=== PATIENT | male | born 1995 | race Caucasian/White ===

== ENCOUNTER 2018-03-27 18:18 | Emergency (ER) | payer OTHER, SELFPAY ==
[2018-03-27 18:19] VITALS: BP 167/79; PULSE 71; RESP 16; TEMP 36.7; O2SAT 100; BMI 33.9
--- NOTE | 2018-03-27 19:23 | CT_ITS ---
STUDY: CT BRAIN WITHOUT CONTRAST REASON FOR EXAM: Male, 22 years old. Trauma RADIATION DOSAGE (If Supplied By Facility): CTDIvol = ( 44.99 ) mGy, DLP = ( 846.73 ) mGycm TECHNIQUE: Transaxial CT imaging of the brain was performed without administration of intravenous contrast material. Individualized dose optimization techniques were used for this CT. COMPARISON: None. FINDINGS: Normal soft tissue structures. Normal calvarium. Normal size ventricles and extra-axial spaces for the patient's age. Normal white matter tracts of the cerebral hemispheres. Normal basal ganglia and thalami. Normal brainstem. Normal cerebellum. There is no intracranial hemorrhage. There are no findings of an acute ischemic infarction. Normal visualized paranasal sinuses. CT/Brain/Head without Contrast IMPRESSION: Normal unenhanced CT scan of the brain. Electronically Signed: Chaz García MD at 20:05 EST , Service support ,
--- NOTE | 2018-03-27 20:53 | ED.DCSUM_ITS ---
- ER Visit Summary Date of Service: 03/27/18 Chief Complaint: Laceration History of Present Illness: The patient is a 22 M who was hit in the right eyebrow with a pipe at work on accident. No loss of consciousness. No other injuries or complaints. No blood thinner use. Tetanus up-to-date. Physical Examination: Vitals unremarkable. Patient has a 3 cm linear laceration to his right eyebrow. Eyes are unremarkable. Normal exam. There is a contusion near the laceration and his right forehead is tender to palpation. The remainder of his HEENT exam unremarkable. Neck is nontender. Normal neurologic testing grossly Test Results: CT unremarkable Emergency Department Course and Treatment: Area was anesthetized, cleaned, explored, sutured with 4 simple interrupted sutures. Patient tolerated this well. He was given wound care instructions and will follow-up with corporate care. Treatment Plan: As above Disposition: Discharge Impression: 1. Forehead laceration 3 cm 2. Forehead contusion This note was generated with [employer] dictation software. It may contain incorrect words, spelling, and punctuation that were not noted in review of the chart prior to signing ED Disposition - Plan for ED Patient: Chief Complaint: Head Injury Referrals: Lew Lindo, CRISTIANO-C [Primary Care Provider] -
--- NOTE | 2018-03-27 20:53 | ED.DEP ---
ED Disposition - Plan for ED Patient: Chief Complaint: Head Injury Instructions: ED Laceration Facial Sutr Tape Referrals: Corporate,Care [GROUP OF PHYSICIANS] - 7 Days for suture removal
[2018-03-27 21:02] VITALS: BP 126/56; PULSE 66; RESP 15; O2SAT 97
--- OUTSIDE RECORDS SUMMARY | 2018-06-01 17:07 | XMS RPT_ITS ---
:1995 Author Organization [facility] Care Team Providers Name Role Phone Manish Francis Unavailable Lwe Lindo SLP TEACHER-Lucia Primary Care Unavailable PROBLEMS PROBLEMS No Problem Records FoundPROCEDURES PROCEDURES No Procedure Records FoundRESULTS RESULTS EMERGENCY DEPARTMENT Observed: 03/27/2018 Status: F Source: [facility] SUMMARY 11:49 PM [facility] REPOSITORY [facility] Medical Records Department [address] [address] Emergency Department Summary 03/27/182051 MR#: [id number] Acct: [id number] Name: AMERICO GRANDE Rep #: [id number] : 1995 22 From: Manish Francis MD PCP: RAYRAY Mahoney Status: DEP ER - ER Visit Summary Date of Service: 03/27/18 Chief Complaint: Laceration History of Present Illness: The patient is a 22 M who was hit in the right eyebrow with a pipe at work on accident. No loss of consciousness. No other injuries or complaints. No blood thinner use. Tetanus up-to-date. Physical Examination: Vitals unremarkable. Patient has a 3 cm linear laceration to his right eyebrow. Eyes are unremarkable. Normal exam. There is a contusion near the laceration and his right forehead is tender to palpation. The remainder of his HEENT exam unremarkable. Neck is nontender. Normal neurologic testing grossly Test Results: CT unremarkable Emergency Department Course and Treatment: Area was anesthetized, cleaned, explored, sutured with 4 simple interrupted sutures. Patient tolerated this well. He was given wound care instructions and will follow-up with corporate care. Treatment Plan: As above Disposition: Discharge Impression: 1. Forehead laceration 3 cm 2. Forehead contusion This note was generated with [employer] dictation software. It may contain incorrect words, spelling, and punctuation that were not noted in review of the chart prior to signing ED Disposition - Plan for ED Patient: Chief Complaint: Head Injury Referrals: Lew Lindo NP-C [Primary Care Provider] - What to do if you have Problems For any increased pain, shortness of breath, bleeding, nausea or vomiting, chest pain, or any unexpected problems, contact your Primary Care Provider. Call [facility] ([phone]) or report to the closest Emergency Room. Call 911 if necessary. 03/27/18 2349 <Electronically signed by Manish Francis MD> Date Manish Francis MD Cosigner Signature (If Indicated): Date CC: RAYRAY Lindo DISCHARGE INSTRUCTION Observed: 03/27/2018 Status: F Source: [facility] 11:49 PM [facility] REPOSITORY [facility] Medical Records Department [address] [place] [address] Discharge Instruction 03/27/182052 MR#: [id number] Acct: [id number] Name: AMERICO GRANDE Rep #: [id number] : 1995 22 From: Manish Francis MD PCP: RAYRAY Mahoney Status: [facility] ER ED Disposition - Plan for ED Patient: Chief Complaint: Head Injury Instructions: ED Laceration Facial Sutr Tape Referrals: [facility] [GROUP OF PHYSICIANS] - 7 Days for suture removal What to do if you have Problems For any increased pain, shortness of breath, bleeding, nausea or vomiting, chest pain, or any unexpected problems, contact your Primary Care Provider. Call [facility] ([phone]) or report to the closest Emergency Room. Call 911 if necessary. 03/27/18 2270 <Electronically signed by Manish Francis MD> Date Manish Francis MD Cosigner Signature (If Indicated): Date CC: RAYRAY Lindo BRAIN/HEAD WITHOUT Observed: 03/27/2018 Status: F Source: [facility] CONTRAST 7:24 PM [facility] REPOSITORY [facility] Imaging Services [address] [place] [address] Brain/Head without Contrast MR#: [id number] Acct: [id number] Name: AMERICO GRANDE Rep #: [id number] : 1995 M 22 From: Chaz García MD PCP: RAYRAY Mahoney Status: REG ER Study: Brain/Head without Contrast Date of Exam: 03/27/18 Exam# [id number] Ordering Dr: Manish Francis MD STUDY: CT BRAIN WITHOUT CONTRAST REASON FOR EXAM: Male, 22 years old. Trauma RADIATION DOSAGE (If Supplied By Facility): CTDIvol = ( 44.99 ) mGy, DLP = ( 846.73 ) mGycm TECHNIQUE: Transaxial CT imaging of the brain was performed without administration of intravenous contrast material. Individualized dose optimization techniques were used for this CT. COMPARISON: None. FINDINGS: Normal soft tissue structures. Normal calvarium. Normal size ventricles and extra-axial spaces for the patient's age. Normal white matter tracts of the cerebral hemispheres. Normal basal ganglia and thalami. Normal brainstem. Normal cerebellum. There is no intracranial hemorrhage. There are no findings of an acute ischemic infarction. Normal visualized paranasal sinuses. CT/Brain/Head without Contrast IMPRESSION: Normal unenhanced CT scan of the brain. Electronically Signed: Chaz García MD at 20:05 EST , Service support , CC: RAYRAY Lindo; Manish Francis MD Marketing Regional Consultant: Signed ALLERGIES ALLERGIES DATE TYPE / CODE NAME / CODE REACTION SEVERITY SOURCE 03/27/2018 Drug No Known Unknown [facility] Allergy/4160 Allergies/F00 [facility] 99931(SNOMED [id number](RXNOR Repository CT) M) ENCOUNTERS ENCOUNTERS ADMIT/DISCHARGE ACCOUNT ADMITTING ENCOUNTER LOCATION SOURCE NUMBER CLASS 03/27/2018/ [id number] Emergency Ronald Ronald [address] [place] [address] ing:ED Repository PAYERS PAYERS ENCOUNTER GUARANTOR PAYER SUBSCRIBER SOURCE 03/27/2018 AMERICO CASTRO Primary AMERICO Cardenas [id number] S Insurance:OBWC FETZERDOB: [facility] [id number]: Repository [address]Tvg: [phone] [phone] () Date:[id number] [address], [place] [address]PH: 03/27/2018 Secondary AMERICO Cardenas Insurance:MEDI FETZERDOB[facility] Number: [id number] [facility] [id number] Repository Date:[id number] [address] [address]DH: 03/27/2018 Tertiary NOT GIVENCASTILLO Ronald Insurance:SELF PAY [facility] Number: Effective Repository Date:2018-03-27
== END 2018-03-27 21:16 | disposition home or self-care (01) ==
LOC: ED 19:43
PROVIDERS: Emergency Provider Emergency Medicine; Family Provider Nurse Practitioner Family; PCP Nurse Practitioner Family
DX: S01.111A Laceration without foreign body of right eyelid and periocular area, initial encounter (principal); W22.8XXA Striking against or struck by other objects, initial encounter; Y93.89 Activity, other specified; Y92.89 Other specified places as the place of occurrence of the external cause; Y99.0 Civilian activity done for income or pay
CPT/HCPCS: 12013; 70450; 99283

== ENCOUNTER 2021-06-29 10:19 | Day surgery (SDC) | payer OTHER, SELFPAY ==
[2021-06-29] VITALS (9 sets, daily range): BP systolic 150–184; BP diastolic 70–118; PULSE 72–103; RESP 16; TEMP 36.2–37.1; O2SAT 96–100; BMI 34.7
[2021-06-29] MEDS: Lactated Ringers 1,000 ML 30 ML IV ×2 (11:09→14:30)
[2021-06-29] MEDS: Cefazolin 2 GM in 0.9% Normal Saline 100 ML IV (12:38)
--- NOTE | 2021-06-29 14:35 | PCM.DC ---
Discharge Instructions Follow Up Care Test Results: Test results from this visit will be discussed in further detail at your follow-up appointment, if applicable. Discharge Plan Admission Attending Provider: Rolan Galaviz Primary Care Provider: Care Physician,No Primary Instructions Additional Instructions / Restrictions: Follow preprinted instructions from your surgeons office. Discharge Orders/Prescriptions Prescriptions: No Action NK RF: 0 Referrals / Follow Up: Rolan Galaviz DO [STAFF PHYSICIAN] - Within 2 Weeks Care Physician,No Primary [Primary Care Provider] - Disposition Disposition (needs filled in before D/C Order can be placed): Home, Self Care
--- NOTE | 2021-06-29 14:58 | PCM.OPRPT ---
Report of Operation Description of Surgical Findings:: Preoperative diagnosis: 1. Left knee anterior cruciate ligament rupture 2. Left knee medial meniscus tear 3. Questionable left lateral meniscus tear Postoperative diagnosis: 1. Left knee anterior cruciate ligament rupture 2. Left knee Posterior medial meniscus RAMP lesion - healed Procedure: Diagnostic and operative left knee arthroscopy with quadriceps autograft anterior cruciate ligament reconstruction Primary Surgeon: Rolan Galaviz DO Senior Nurse Manager: Ashley Griffin PA-C Anesthesia: General LMA with postoperative femoral nerve block Anesthesiologist: Dr. Salazar Complications: None apparent Estimated blood loss: 25 cc IV fluids: Per anesthesia record Implants: Arthrex tight rope femoral fixation with ABS button tibial sided fixation Intraoperative findings: Healed ramp lesion left knee Complete ACL rupture Preoperative indications: This is an otherwise healthy 25-year-old male seen in the outpatient setting diagnosed with a left knee anterior cruciate ligament rupture. Injury occurred approximately 6 weeks ago. MRI confirmed the diagnosis. He rehabbed her knee and regain full motion and excellent strength. He did experience considerable instability and avoidance of specific activities after rehab. Operative intervention in the form of left knee anterior cruciate ligament reconstruction was recommended. We discussed graft options. We settled on a quadriceps autograft. The risk, benefits, alternatives to the procedure was reviewed with the patient at length. Risks included but were not limited to bleeding, wound complications, infection, loss of life or limb, need for additional surgery, continued instability, persistent pain, posttraumatic arthritis, stiffness, difficulty returning to sport, risk of anesthesia, DVT or PE, neurovascular injury. Patient expressed understanding his risks and wished to proceed with surgery. Informed consent obtained in the office. Description of procedure: Patient was identified in preoperative holding area by name, medical record number, and date of . The operative extremity was marked. Informed consent confirmed with the patient. All questions were answered to patient satisfaction. At time of his procedure, patient was brought to the operative suite and positioned supine on a standard operating table. All bony prominences were well-padded. General anesthesia was induced and laryngeal mask airway placed. After securing the tube, I placed a well-padded pneumatic tourniquet on the upper thigh of the operative extremity. I first examined the leg under anesthesia. There was a positive pivot shift and Marlena. We then positioned the operative extremity in a circumferential arthroscopic leg blanco. A well-leg blanco was placed on the patient's nonoperative thigh. We then dropped the foot of the bed 90 degrees. We then prepped and draped the operative lower extremity in a normal, sterile orthopedic fashion. We performed a timeout with all parties in attendance in agreement with the side, site, operation to be performed. No concerns were voiced and we elected to proceed with surgery. 2 g Ancef was administered for antibiotic prophylaxis prior to the incision by the anesthesia staff. Given the positive provocative findings and positive MRI findings consistent with ACL rupture, I elected to harvest the graft first. I planned a midline incision overlying the quadriceps tendon approximately 4 cm in length. Operative extremity was exsanguinated with an Esmarch bandage and tourniquet was inflated to 250 mmHg remained up throughout the case. Skin was sharply incised with a 15 blade scalpel through skin and subcutaneous tissue. Subcutaneous fat was cleared exposing the peritenon of the quadriceps. The quadriceps peritenon was carefully elevated and dissected free from the underlying tendon, in line with the skin incision. I then identified the insertion of the tendon on the superior pole of the patella. I utilized the parallel cutting guide 9 mm in diameter to establish the width of our tendon harvest. I sharply dissected the insertion off of the patella. I elevated a partial thickness graft. After gaining approximately 4 cm in length, I performed a whipstitch for fixation into the tendon with a FiberWire suture. I then utilized a torres elevator and scalpel to continue to elevate the graft. I was able to elevate the tendon graft free to a length of 65 millimeters. This was cut sharply with the cigar cutting instrument from [employer]. The void in the quadriceps was then closed with 0 Vicryl suture. Peritenon was closed with 2-0 Vicryl suture in watertight fashion. The graft was moved to the back table where my assistant shift supervisor, Mrs. Griffin, began to prepare the graft. She prepared a standard all inside fixation with a tight rope attachment on the femoral side. The graft was pretensioned. After the graft was prepared, it was left under tension and kept fresh with a moist sponge. 9.5 mm femoral side and 9 mm tibial side were the final graft diameters. During time of graft preparation, I commenced diagnostic and operative arthroscopy. Establish a standard anterolateral portal with an 11 blade scalpel. Blunt tipped trocar and cannula was inserted through this portal as the knee was brought into full extension into the patellofemoral joint. Trocar was removed and arthroscope introduced. Examination of the knee revealed pristine cartilage in the patellofemoral, medial and lateral compartments. There is a previously inlet ramp lesion noted on MRI which appeared to be healed after passing the scope through the notch. Medial and lateral meniscus were identified and probed, and appeared stable. The remnants of the ACL was then encountered. ACL rupture was confirmed. I resected the remaining portion of the ACL with a radial resector, marking the footprints with the radiofrequency ablator. I then performed a notchplasty in standard fashion with a 5.5 mm bur. I then introduced the flip cutter drill guide through the anterior lateral portal and the camera was moved to the anterior medial portal. I positioned the drill guide to allow for 2 mm of back wall at approximately the 3:00 position on the lateral wall of the notch. I made a stab incision along the lateral thigh in line with the planned trajectory of the flip cutter. Skin, subcutaneous tissue, and IT band were sharply incised and dilated. Drill guide and drill were then passed down to the level of the lateral femoral cortex. We drilled through the lateral cortex into the intercondylar notch at the planned trajectory location. The flip cutter was then deployed to a diameter of 9.5 mm. The flip cutter was then used to retrograde drill the femoral socket to a depth of 20 mm. Flip cutter was then retracted and pulled from the wound. A fiber stick was then introduced through the femoral socket. The fiber wire was then retrieved out the anterior lateral portal and luggage tagged. Loose pieces of bone was debrided with a radial resector from the knee. I then switched the camera to the lateral portal. I placed the tibial drill guide through the anterior medial portal planning be tunnel placement at the [place] footprint of the ACL. I sharply incised the skin with an 11 blade scalpel through skin and subcutaneous tissues over the anterior medial tibia with planned trajectory of the drill course. I then drilled through the anterior medial tibia into the joint at the planned trajectory. I deployed the flip cutter to a diameter of 9 mm and drilled retrograde fashion for the tibial socket, approximately 35 mm in length. I then reversed the flip cutter to 3.5 mm and removed from the joint. I placed a tiger stick through the tibial tunnel and retrieved out the anterior medial portal. I then brought the graft to the surgical field. I retrieved the loop end of the femoral side shuttling suture through the anterior medial portal and attached to the suture ends of the femoral side button of the graft. We then passed the sutures and button through the femoral tunnel. The tight rope button was then deployed and engaged the lateral femoral cortex. We then sequentially tightened the graft to docket into the femoral tunnel. I then retrieve the passing suture for the tibial tunnel at the anteromedial portal and utilized it to pass the tibial side of the graft/sutures. Sutures were then retrieved out the tibial tunnel. I placed an ABS button through the tight rope mechanism is sequentially tightened to appropriate, maximum tension. The knee was then cycled 25 times to prevent creep. Final tightening was performed in full extension. I tied 3 half hitch knots over the tibial button. Sutures were then cut. The knee was thoroughly debrided lavage of any loose pieces of bone. Final images were obtained. Tourniquet was deflated and hemostasis was excellent. Portal sites were closed in standard fashion with coxdrr-ag-coeab 4-0 nylon suture. Subcuticular 4-0 Monocryl and Dermabond were used to reapproximate the skin of the harvest site. Sterile compression dressing was then applied. Need for skilled assistant shift supervisor: Ashley Griffin PA-C was critical to the outcome of the case. During the course of the procedure the physician assistant shift supervisor played a vital role. Her intimate knowledge of my steps in the procedure aided in safe and expedient completion of the procedure. The PA played a vital role in positioning particularly in obtaining the appropriate positioning. The PA was also vital in the retraction of soft tissues during the exposure and projecting vital structures. The PA was also vital and protecting soft tissues during graft harvest. She prepared the autograft under my direct supervision.. She also played a vital role in closure with my direct supervision. Postoperative plan: Weightbearing and range of motion as tolerated left lower extremity Ice and elevation Follow-up 2 weeks in my office Prescription of oxycodone provided as an outpatient 81 mg aspirin twice daily to start for DVT prophylaxis tomorrow morning PT scheduled to start in 2 days Written instructions provided
--- NOTE | 2021-06-29 16:05 | SUR.PHASEI ---
family updated via clerk secretary
== END 2021-06-29 23:59 | disposition home or self-care (01) ==
LOC: SDC 10:21 → AC 10:23
PROVIDERS: Referring Provider Student in an Organized Health Care Education/Training Program; Visit Provider Student in an Organized Health Care Education/Training Program
PROC: (CPT 29888; principal; 2021-06-29 12:10)
DX: S83.512D Sprain of anterior cruciate ligament of left knee, subsequent encounter (principal); S83.242A Other tear of medial meniscus, current injury, left knee, initial encounter; E66.8 Other obesity; Z68.34 Body mass index [BMI] 34.0-34.9, adult; F84.0 Autistic disorder; Z79.899 Other long term (current) drug therapy
CPT/HCPCS: 29888; 01400; C1713; J7120; J2405

== ENCOUNTER 2023-03-08 05:57 | Day surgery (SDC) | payer OTHER, SELFPAY ==
[2023-03-08] VITALS (10 sets, daily range): BP systolic 119–138; BP diastolic 50–82; PULSE 57–98; RESP 16–18; TEMP 36.2–36.8; O2SAT 95–100; BMI 34.9
--- OUTSIDE RECORDS SUMMARY | 2023-03-08 06:00 | XMS RPT_ITS | CCD ---
Author Name Unknown Address [facility] [address] [place] [address] Organization [facility] Care Team Providers Care Stock Lifter Name Role Phone DANIELLE WASSERMAN DO Attending Unavailable Results Test Name Value Interpretation Reference Range Facil ity Encounters Encounter Date Encounter Type Care Provider Facility Start: 02-15-2023 End: 02-16-2023 ambulatory DANIELLE WASSERMAN DO Facility:B Start: 02-15-2023 End: 02-15-2023 Patient encounter procedure DANIELLE WASSERMAN DO [facility] Payers Date Payer Category Payer Unknown [id number] 1995 Unknown [id number] Clinical Note 02-15-2023 Note Date & Type Note Facility 02-15-2023 Note ORIGINAL EXAMINATION: TWO XRAY VIEWS OF THE CHEST02/15/2023 4:05 pm XR Chest two views COMPARISON: None HISTORY: ORDERING SYSTEM PROVIDED HISTORY: Reason for Exam: Encounter for preprocedural respiratory exam, FINDINGS: No suspicious nodule, acute infiltrate, consolidation,mass, pneumothorax, pleural fluid, or vascular congestion is seen. Heart size and mediastinal contours are within normal limits for age and projection. No acute skeletal abnormality. IMPRESSION: No acute cardiopulmonary process. Interpreted by: Vinay Arroyo MD Preliminary Report By: Vinay Arroyo MD Electronically signed By Vinay Arroyo MD Dictated Date: 02/16/2023 12:24:19 AM Prelim Date: 02/16/2023 12:24:41 AM Sign Date: 02/16/2023 12:24:41 AM Ordering Provider: DANIELLE WASSERMAN [facility] Evaluation + Plan note 02-15-2023 Note Date & Type Note Facility 02-15-2023 Evaluation + Plan note Diagnostic Tests PendingMRSA (PCR) 02/15/23 [facility] Hospital course Narrative Note Date & Type Note Facility Hospital course Narrative No data available for this section [facility] Hospital Discharge instructions Note Date & Type Note [facility] Hospital Discharge instructions No data available for this section [facility] Progress note Note Date & Type Note Facility Progress note No data available for this section [facility] Summary Purpose Family History No Family History Records Found Advance Directives No Advanced Directives Records Found Additional Source Comments (unrecognized sect ion and content) No Status Records Found INFORMATION SOURCE (unrecogn ized section and content) FOR RECORDS PERTAINING TO PATIENTS WHO ARE OR HAVE BEEN ENROLLED IN A CHEMICAL DEPENDENCY/SUBSTANCEABUSE PROGRAM, SOME INFORMATION MAY BE OMITTED. This clinical summary was aggregated from multiple sources. Caution should be exercised in using it in the provision of clinical care. This summary normalizes information from multiple sources, and as a consequence, information in this document may materially change the coding, format and clinical context of patient data. In addition, data may be omitted in some cases. CLINICAL DECISIONS SHOULD BE BASED ON THE PRIMARY CLINICAL RECORDS. [employer] provides no warranty or guarantee of the accuracy or completeness of information in this document.
[2023-03-08] MEDS: Lactated Ringers 1,000 ML 15 ML IV (06:26)
--- NOTE | 2023-03-08 07:02 | OP.PCM_ITS ---
Problems Associated Problem List Diagnoses (1) Lumbar disc herniation: Report of Operation Description of Surgical Findings:: REPORT OF OPERATION PREOPERATIVE DIAGNOSES: 1. Lumbar stenosis, L4-5 with spondylosis. 2. Lumbar disc herniation L4-5, left. POSTOPERATIVE DIAGNOSES: 1. Lumbar stenosis, L4-5 with spondylosis. 2. Lumbar disc herniation L4-5, left. PROCEDURE PERFORMED: 1. Left L4-5 laminotomy, discectomy. SURGEON: Seun Degroot DO ANESTHESIA: General endotracheal anesthesia. IV FLUIDS: 1000 cc ESTIMATED BLOOD LOSS: 20 cc STATEMENT OF MEDICAL NECESSITY: The patient is a 27-year-old male with intractable back and leg pain. Image studies confirm above diagnosis. He has failed conservative treatment and has opted for operative intervention, understanding the risks to include, but not limited to infection, bleeding, damage to nerves, arteries, and veins, possibility of spinal fluid leak, nonunion, hardware failure, continued pain, need for further surgery, deep vein thrombosis, pulmonary embolism, heart attack, risk of stroke, or . DESCRIPTION OF PROCEDURE: The patient was identified in the preoperative holding area. There, he received the preoperative IV antibotics and was then transferred to the operating suite. Once in the operating suite, after general endotracheal anesthesia was established, the patient was transferred to the [place] operating table in the prone position. All bony prominences were padded accordingly. The lumbar spine was prepped and draped in standard surgical fashion. Midline incision was made and taken down to the lumbodorsal fascia. This was divided and subperiosteal dissection taken down to the level of the left L4-5 facet joint. Deep retractors were placed. A bur was used to thin the lamina and then a series of Kerrisons and Edward was used to perform a left L4-5 laminotomy. The nerve root and dura were identified and retracted medially. A large subligamentous disc herniation was identified. A 15 blade scalpel was used to perform an annulotomy. Pituitaries were used to remove subligamentous disc herniation. Any loose fragments were identified and removed. At this point a curette was utilized in the left L4-5 foramen and a foraminotomy was performed using a kerrison. The wound was thoroughly irrigated. Tissel was placed over the dura as a hemostatic agent. The fascia was closed with #1 Vicryl, subcutaneous with 2-0 Vicryl, skin was closed with 2-0 nylon. Sterile dressing was applied with 4 x 4, ABD, and tape. Sponge, instrument, and needle counts were correct at the end of the case. The patient was extubated, taken to PACU without incident. Surgeon: Marcus Degroot Type of Anesthesia: General Estimated Blood Loss (mL): 20 cc Fluids Replaced: 1000 cc Complications None Admit VTE Documentation VTE Present on Admission: No
--- NOTE | 2023-03-08 07:03 | PN.ORTHO_ITS ---
Subjective Subjective Seen and examined postop. Resting comfortably. Pain controlled. No complaints Objective Data Objective Data Vital Signs: Vital Signs Temp Pulse Resp BP Pulse Ox O2 Del Method 98 F 98 16 129/82 H 98 Room Air 03/08/23 06:23 03/08/23 06:23 03/08/23 06:23 03/08/23 06:23 03/08/23 06:23 03/08/23 06:23 Oxygen Delivery Method Room Air Weight: 257 lb 15.053 oz Body Mass Index (BMI) 34.9 Physical Exam Const alert, oriented x3 and no apparent distress General Appearance: cooperative, comfortable and well kempt HEENT normocephalic and head/scalp atraumatic Eyes EOMs intact bilaterally and conjunctivae normal Neck full ROM General: normal visual inspection Chest inspection of chest normal and palpation of chest normal Resp normal respiratory effort and normal air movement Cardio regular rate, regular rhythm and peripheral pulses 2+ throughout GI soft to palpation, non-tender and non-distended Back/Spine Back/Spine Narrative: Dressing clean dry and intact Cervical Spine: cervical ROM normal Thoracic Spine / Upper Back: normal to inspection Lumbar Spine / Lower Back: normal to inspection Extremity normal to inspection, full ROM, normal capillary refill, no clubbing, cyanosis or edema and no calf tenderness Skin no rashes or lesions noted General Skin Exam: no breakdown Neuro oriented x3, CN's II-XII intact bilaterally, moves all extremities, no focal motor deficits, no sensory deficits noted and deep tendon reflexes 2+ bilatera lly Motor Exam: strength 5/5 throughout and muscle tone normal throughout Assessment & Plan Assessment/Plan (1) Lumbar disc herniation: PLAN: Okay to discharge See discharge instructions Follow-up with Dr. Degroot in 3 weeks
[2023-03-08] MEDS: Cefazolin 2 GM in 0.9% Normal Saline (100mL Bag) 100 ML IV (07:19)
--- NOTE | 2023-03-08 07:30 | RAD_ITS ---
INDICATION: L4-5 LAMINOTOMY, DISCECTOMY -- 9.8 sec fluoro 6.92 mGy 1 image EXAMINATION/TECHNIQUE: X-RAY - XR Spine Lumbar 1 View COMPARISON: None. FINDINGS: Single intraoperative fluoroscopic spot film obtained during surgery for localization of the L4-5 disc space. For details of the procedure please refer to the operative notes. Total fluoroscopic time 9.8 seconds. RAD/Spine 1 View Any Level IMPRESSION: Intraoperative fluoroscopic spot film during lumbar surgery. Electronically Signed: Jaspreet Ramos MD at 20:16 EST ,
[2023-03-08] MEDS: THROMBIN (RECOMBINANT) 20,000 UNIT VIAL 20000 UNIT TOPICAL (07:53)
[2023-03-08] MEDS: Bupivacaine 0.25% 30 ML Vial (08:49)
[2023-03-08] MEDS: Oxycodone/Apap 5/325 Tablet PO (11:01)
== END 2023-03-08 11:55 | disposition home or self-care (01) ==
LOC: SDC 05:59 → AC 05:59
PROVIDERS: Referring Provider Orthopaedic Surgery; Visit Provider Orthopaedic Surgery
PROC: (CPT 63030; principal; 2023-03-08 07:00)
DX: M51.16 Intervertebral disc disorders with radiculopathy, lumbar region (principal); M46.96 Unspecified inflammatory spondylopathy, lumbar region; M48.061 Spinal stenosis, lumbar region without neurogenic claudication; M51.26 Other intervertebral disc displacement, lumbar region; M51.36 Other intervertebral disc degeneration, lumbar region; M47.26 Other spondylosis with radiculopathy, lumbar region; X58.XXXA Exposure to other specified factors, initial encounter; E66.8 Other obesity; Z68.35 Body mass index [BMI] 35.0-35.9, adult
CPT/HCPCS: 63030; 00630; 72020; 76000; J7120; J2405

== ENCOUNTER 2023-06-22 14:59 | Emergency (ER) | payer OTHER, SELFPAY ==
[2023-06-22 15:00] VITALS: BP 164/101; PULSE 107; PULSE 117; RESP 20; TEMP 36.1; O2SAT 99; BMI 34.3
--- NOTE | 2023-06-22 15:16 | ED.VIS.BACK ---
HPI History of Present Illness Chief Complaint: Back Detail of Chief Complaint: Back pain Informant: patient and parent Narrative Narrative: Patient presents with lower back pain that he woke up with this morning. Pain at times radiates down his left leg and his left calf feels tingly. Denies weakness to the extremity. Denies change in bowel or bladder function. Patient has had some chronic back pain issues and had a lumbar discectomy in February 2023 however he cannot remember the level he thinks it is the lowest 1. Patient denies fevers or recent illness. PFSH PFSH Medical History Alcohol use History of pain when walking Non-smoker Home Medications hydrocodone-acetaminophen 5-325mg 5mg-325mg 1 tab PO Q6H 7 days #28 tabs 03/08/23 [Rx Last Taken Unknown] cyclobenzaprine 10 mg tablet 10 mg PO TID PRN Muscle Spasm #20 TABLETS 06/22/23 [Rx Last Taken Unknown] gabapentin 100 mg capsule 100 mg PO TID #90 caps 06/22/23 [Rx Last Taken Unknown] hydrocodone-acetaminophen 5-325mg 5mg-325mg 1 tab PO Q4H PRN PRN Pain 2 days #10 TABLETS 06/22/23 [Rx Last Taken Unknown] methylprednisolone 4 mg tablets in a dose pack (Medrol (Hector)) 4 mg PO DAILY #21 tabs 06/22/23 [Rx Last Taken Unknown] Allergy/AdvReac Type Severity Reaction Status Date / Time No Known Allergies Allergy Verified 06/22/23 15:00 Surgical History (Updated 02/21/23 @ 13:06 by Kendy Olmstead) History of repair of ACL Hx of appendectomy Hx of tonsillectomy Social History (Updated 02/08/20 @ 08:47 by ALEXANDRA Mccracken) Smoking Status: Never smoker ROS ROS ED Review of Systems ROS Unobtainable: other Constitutional Constitutional ED: Reports lethargy; Denies chills, fever(s), sweats or weight loss Eyes Eyes: Denies blurry vision, change in vision or diplopia ENT ENT ED: Denies rhinorrhea or sore throat Cardiovascular Cardiovascular: Denies chest pain, orthopnea or racing heartbeat Respiratory/Chest Respiratory/Chest: Denies cough, dyspnea, dyspnea on exertion, orthopnea or sputum Gastrointestinal Gastrointestinal: Denies abdominal pain, diarrhea, nausea or vomiting Genitourinary Genitourinary ED: Denies dysuria, hematuria or urinary frequency Musculoskeletal Musculoskeletal: Reports back pain; Denies arthralgias, myalgias or neck pain Integumentary Denies abscess, Abrasions or rash Neurologic Neurologic: Denies headache(s) or weakness Psychiatric Psychiatric: Denies anxiety, depression or suicidal thoughts Endocrine Endocrinology: Denies polydipsia, polyphagia or polyuria Hematologic/Lymphatic Hematologic/Lymphatic: Denies easy bleeding, easy bruising or lymphadenopathy Allergic/Immunologic Allergic/Immunologic ED: Denies mouth swelling, tongue swelling or urticaria EXAM Physical Exam Const Vital Signs: 06/22/23 15:00 06/22/23 15:00 Temperature 96.9 F L Temperature Source Temporal Pulse Rate 107 H 117 H Respiratory Rate 20 H 20 H Blood Pressure 164/101 H 164/101 H Blood Pressure Mean 122 122 Pulse Ox 99 99 Oxygen Delivery Method Room Air Room Air Positive well nourished and well developed General Appearance ED: well developed and NAD HEENT Reports TM's clear and moist mucous membranes normocephalic and atraumatic; Negative for trauma or tenderness Tympanic Membrane ED: Yes TM's clear Eyes PERRL and EOMs intact bilaterally General Eye ED: Negative for pale conjunctiva or scleral icterus Neck no lymphadenopathy, supple and no JVD General: Negative for tenderness Chest Wall inspection of chest normal and palpation of chest normal Chest: Negative for tenderness Resp normal respiratory effort and clear to auscultation bilaterally Effort and Inspection: Negative for respiratory distress or pain with movement Auscultation: Negative for rhonchi, wheezes or diminished lung sounds Cardio regular rate, regular rhythm, S1 normal heart sound, S2 normal heart sound and no murmurs Peripheral Pulses: pulses 2+ throughout GI normal to inspection, nondistended, normoactive bowel sounds, soft to palpation, non-tender, non-distended and no masses Back/Spine no CVA tenderness and no thoracic nor lumbar tenderness Back/Spine Narrative: Mild diffuse paraspinal tenderness bilaterally in the lumbar spine. No significant bony tenderness on exam. His lumbar incision is healed nicely. There is no erythema or warmth of the skin noted. He has positive straight leg raise about 20 degrees while seated on the left. He has normal L5 extension bilaterally. Normal sensation to light touch bilaterally. Extremity normal to inspection General Extremety ED: Negative for edema General Extremity: Negative for edema Neuro oriented x3, CN's II-XII intact bilaterally, no sensory deficits noted and gait normal Sensorium / Orientation: awake, alert, oriented to person, oriented to place and oriented to time Motor Exam: strength 5/5 throughout and strength abnormal Psych mental status grossly normal Skin no rashes or lesions noted and no wounds MDM MDM MDM Narrative Medical decision making narrative: Patient was medicated with Dilaudid as well as Norflex and Toradol. Case discussed with Dr. Degroot who is the surgeon that performed surgery. I was asked to start him on steroids and gabapentin and he will follow-up with patient in the office within the next week. There are no red flag symptoms of cauda equina. I do not feel any imaging is indicated. Patient advised to return to the ER if worsening pain, weakness extremities, change in bowel or bladder function, or condition worsening way. Discharge Plan Triage Chief Complaint: Back ED Provider: Robert Carter Dx/Rx/DC Orders Clinical Impression: Acute lumbar radiculopathy, Back pain Instructions: ED Back Pain (Acute or Chronic), ED Sciatica Prescriptions: New cyclobenzaprine [cyclobenzaprine] 10 mg tablet 10 mg PO TID PRN (Reason: Muscle Spasm) Qty: 20 0RF hydrocodone-acetaminophen [hydrocodone-acetaminophen] 5-325 mg tablet 1 tab PO Q4H PRN PRN (Reason: Pain) 2 Days Qty: 10 0RF gabapentin 100 mg capsule 100 mg PO TID Qty: 90 0RF methylprednisolone [Medrol (Hector)] 4 mg tablets,dose pack 4 mg PO DAILY Qty: 21 0RF No Action hydrocodone-acetaminophen 5-325 mg tablet 1 tab PO Q6H 7 Days Qty: 28 0RF Primary Care Provider: Care Physician,No Primary Referrals: Marcus Degroot DO [Med Staff - Active Staff] - 5-7 Days Care Physician,No Primary [Primary Care Provider] - Disposition Disposition: Home, Self Care
[2023-06-22] MEDS: Orphenadrine 60 MG/2 ML Ampul IM (15:22)
[2023-06-22] MEDS: Ketorolac 60 MG/2 ML Vial IM (15:24)
[2023-06-22] MEDS: HYDROmorphone 1 MG/ML Syringe IM (15:26)
[2023-06-22 16:13] VITALS: BP 175/80; PULSE 95; RESP 18; TEMP 36.8; O2SAT 99
--- NOTE | 2023-06-22 16:14 | ED.RN ---
okay to d/c with hypertensive reading d/t patient being in pain
== END 2023-06-22 16:16 | disposition home or self-care (01) ==
LOC: ED 15:28
PROVIDERS: Emergency Provider Emergency Medicine; Visit Provider Emergency Medicine
DX: M54.16 Radiculopathy, lumbar region (principal); G89.29 Other chronic pain
CPT/HCPCS: 96372; 99282